=== PATIENT | male | born 1940 | race Caucasian/White ===

== ENCOUNTER 2016-08-12 13:59 | Emergency (ER) | payer OTHER ==
[~2016-08-12] VITALS: Ht 177.8 cm; Wt 63.0 kg
[~2016-08-12 13:59] MED LIST: ASPIRIN81 M1 PO; Cardizem PO; DuoNeb IH; GLYBURIDE-METF1 EAC1 PO; INSULIN SC; LANTUS 3 M100 UNITS1 SC; LIPITOR PO; LIPITOR20 MG PO; LISINOPRIL5 MG PO; Lanoxin,Digitek PO; Lasix PO; METOPROLOL TART25 MG PO; PANTOPRAZOLE SO40 MG PO; Protonix PO; TOPROL PO; Toprol XL PO; Zestril,Prinivil PO
[2016-08-12 14:50] LABS: HEMATOCRIT 36.3 % (38.0-50.0); MCH 32.6 PG (29.0-34.0); MCHC 34.4 G/DL (30.0-36.0); MCV 94.5 FL (86-99); MEAN PLAT.VOLUME 9.2 uM^3 (9.0-12.4); PLATELET COUNT 157 K/uL (156-360); RBC DIS.WIDTH-CV 12.9 % (11.8-14.6); RBC DIS.WIDTH-SD 42.9 % (39-53); RED BLOOD COUNT 3.84 M/uL (4.00-5.50); WHITE BLOOD COUNT 6.2 K/uL (4.1-10.2)
[2016-08-12 14:51] LABS: POINT-OF-CARE METER ID UU13113702
[2016-08-12 15:04] LABS: CHLORIDE 111 mEq/L (99-109)
[2016-08-12 15:05] LABS: POTASSIUM 4.5 mEq/L (3.7-5.4); SODIUM 140 mEq/L (136-147)
[2016-08-12 15:06] LABS: GLUCOSE 79 mg/dL (70-99)
[2016-08-12 15:08] LABS: ANION GAP 7 MEQ/L (2-14)
[2016-08-12 15:10] LABS: GFR ESTIMATE (CALCULATED) > 59 mL/min/
[2016-08-12 15:11] LABS: UREA NITROGEN (BUN) 20 mg/dL (9-23)
[2016-08-12 17:45] LABS: POINT-OF-CARE METER ID UU13113702
[2016-08-12] MEDS ORDERED: DIGITEK125 MC2 PO (17:47)
[2016-08-12] MEDS ORDERED: LO-DOSE ASPIRIN81 M2 PO (17:47)
[2016-08-12] MEDS ORDERED: CARDIZEM30 MG PO (17:48)
[2016-08-12] MEDS ORDERED: LASIX20 MG PO (17:49)
[2016-08-12] MEDS ORDERED: LANTUS 3 M100 UNITS1 SC (17:50)
[2016-08-12] MEDS ORDERED: TOPROL XL100 MG PO (17:51)
[2016-08-12] MEDS ORDERED: LISINOPRIL5 MG PO (17:51)
[2016-08-12] MEDS ORDERED: PROTONIX40 MG PO (17:55)
[2016-08-12 17:57] VITALS: BP 119/63
[2016-08-12 18:18] LABS: POINT-OF-CARE METER ID UU13113702
== END 2016-08-12 17:58 | disposition left against medical advice (07) ==
LOC: EME → EDBD 13:59 → EME 13:59
PROVIDERS: Emergency Medicine
DX: E11.649 Type 2 diabetes mellitus with hypoglycemia without coma (principal); I11.0 Hypertensive heart disease with heart failure; I50.9 Heart failure, unspecified; E78.5 Hyperlipidemia, unspecified; K21.9 Gastro-esophageal reflux disease without esophagitis; Z95.1 Presence of aortocoronary bypass graft; F17.200 Nicotine dependence, unspecified, uncomplicated; Z79.4 Long term (current) use of insulin; Z79.84 Long term (current) use of oral hypoglycemic drugs; Z79.82 Long term (current) use of aspirin
CPT/HCPCS: 80048; 82948; 85027; 87506; 99281; 99285

== ENCOUNTER 2016-08-13 08:36 | Observation (INO) | payer OTHER ==
[~2016-08-13] VITALS: Ht 177.8 cm; Wt 63.5 kg
[~2016-08-13 08:36] MED LIST changes: +CARDIZEM30 MG PO; +DIGITEK125 MC2 PO; +LASIX20 MG PO; +LO-DOSE ASPIRIN81 M2 PO; +PROTONIX40 MG PO; +TOPROL XL100 MG PO
[2016-08-13 09:18] LABS: EOSINOPHIL (%) 2.8 % (0-5); EOSINOPHIL COUNT 0.2 K/uL (0-0.3); IMMATURE GRANULOCYTE (%) 0.4 % (0.0-0.7); IMMATURE GRANULOCYTE COUNT 0.2 K/uL; LYMPHOCYTE COUNT 1.2 K/uL (1.0-2.8); MCH 32.3 PG (29.0-34.0); MCHC 34.1 G/DL (30.0-36.0); MCV 94.9 FL (86-99); MEAN PLAT.VOLUME 9.8 uM^3 (9.0-12.4); MONOCYTE COUNT 0.3 K/uL (0-0.8); NEUTROPHIL (%) 69.8 % (45-76); NEUTROPHIL COUNT 3.9 K/uL (1.8-6.4); PLATELET COUNT 171 K/uL (156-360); RBC DIS.WIDTH-CV 13.1 % (11.8-14.6); RBC DIS.WIDTH-SD 43.3 % (39-53); WHITE BLOOD COUNT 5.6 K/uL (4.1-10.2)
[2016-08-13 09:25] LABS: POINT-OF-CARE METER ID UU13113702
[2016-08-13 09:40] LABS: TROP-I INTERPRETATION NEGATIVE; TROPONIN-I 0.01 ng/mL (0.0-0.30)
[2016-08-13 09:50] LABS: ANION GAP 4 MEQ/L (2-14); CHLORIDE 109 MEQ/L (99-109); GFR ESTIMATE (CALCULATED) 57 mL/min/; POTASSIUM 4.3 MEQ/L (3.7-5.4); SAMPLE HEMOLYSIS CHECK 0; SAMPLE ICTERIC CHECK 0; SAMPLE LIPEMIA CHECK 0; SODIUM 140 MEQ/L (136-147); UREA NITROGEN (BUN) 16 mg/dL (9-23)
[2016-08-13 10:03] LABS: GLUCOSE 47 mg/dL (70-99)
[2016-08-13 11:33] LABS: POINT-OF-CARE METER ID UU13113702
[2016-08-13 12:23] LABS: POINT-OF-CARE METER ID UU13113702
[2016-08-13 12:30] LABS: POINT-OF-CARE METER ID UU13113702
[2016-08-13 13:02] LABS: LIPASE 6 U/L (1.0-51.0)
[2016-08-13 13:44] LABS: ADD MIUA? NO; BILIRUBIN NEGATIVE; BLOOD NEGATIVE; COLOR YELLOW ((YELLOW)); GLUCOSE (STRIP) NEGATIVE; KETONES NEGATIVE; LEUKOCYTES NEGATIVE; NITRITE NEGATIVE; PROTEIN (STRIP) NEGATIVE; SPECIFIC GRAVITY 1.008 (1.000-1.030); UROBILINOGEN 0.2 MG/DL (0.2-1.0)
[2016-08-13 14:03] LABS: POINT-OF-CARE METER ID UU14162513
[2016-08-13 15:07] VITALS: BP 138/63
[2016-08-13 16:29] VITALS: BP 99/57
[2016-08-13 18:11] LABS: POINT-OF-CARE METER ID UU14162513
[2016-08-13 21:31] LABS: POINT-OF-CARE METER ID UU14162513
[2016-08-13 23:37] VITALS: BP 93/55
[2016-08-14 07:41] VITALS: BP 135/83
[2016-08-14 08:18] LABS: ANION GAP 6 MEQ/L (2-14); CHLORIDE 108 MEQ/L (99-109); GFR ESTIMATE (CALCULATED) > 59 mL/min/; POTASSIUM 5.1 MEQ/L (3.7-5.4); SAMPLE HEMOLYSIS CHECK 0; SAMPLE ICTERIC CHECK 0; SAMPLE LIPEMIA CHECK 0; SODIUM 136 MEQ/L (136-147); UREA NITROGEN (BUN) 14 mg/dL (9-23)
[2016-08-14 08:20] LABS: GLUCOSE 191 mg/dL (70-99)
[2016-08-14 08:29] LABS: POINT-OF-CARE METER ID UU13113700
[2016-08-14 11:12] VITALS: BP 119/69
[2016-08-14 16:10] VITALS: BP 132/76
[2016-08-14 17:28] LABS: C DIFF TOXIN NEGATIVE (NEGATIVE)
[2016-08-14 17:33] LABS: PROBE CHECK PASS; SPECIMEN PROCESSING CONTROL PASS
[2016-08-14 21:00] VITALS: BP 102/54
[2016-08-14 21:48] LABS: POINT-OF-CARE METER ID UU13113700
[2016-08-14 23:00] VITALS: BP 94/54
[2016-08-15 05:28] VITALS: BP 106/56
[2016-08-15 08:45] LABS: POINT-OF-CARE METER ID UU13113831
[2016-08-15 09:14] LABS: ALKALINE PHOSPHATASE 67 IU/L (3-129); ANION GAP 2 MEQ/L (2-14); CHLORIDE 109 MEQ/L (99-109); GFR ESTIMATE (CALCULATED) > 59 mL/min/; GLUCOSE 257 mg/dL (70-99); SAMPLE HEMOLYSIS CHECK 0; SAMPLE ICTERIC CHECK 0; SAMPLE LIPEMIA CHECK 0; SODIUM 136 MEQ/L (136-147); TOTAL BILIRUBIN 0.7 MG/DL (0.0-1.0); UREA NITROGEN (BUN) 13 mg/dL (9-23)
[2016-08-15 10:15] LABS: LIPASE < 3.0 U/L (1.0-51.0)
[2016-08-15 10:38] VITALS: BP 107/67
[2016-08-15] MEDS ORDERED: ASPIR-LOW81 MG PO (12:02)
[2016-08-15] MEDS ORDERED: METOPROLOL SUC100 MG PO (12:04)
[2016-08-15] MEDS ORDERED: CARDIZEM30 MG PO (12:04)
[2016-08-15] MEDS ORDERED: PRAVASTATIN SOD80 MG PO (12:04)
[2016-08-15] MEDS ORDERED: LISINOPRIL5 MG PO (12:04)
[2016-08-15] MEDS ORDERED: FUROSEMIDE20 MG PO (12:04)
[2016-08-15] MEDS ORDERED: DIGOXIN125 MCG PO (12:04)
[2016-08-15] MEDS ORDERED: NOVOLOG PE100 UNITS/ SC (12:04)
[2016-08-15] MEDS ORDERED: PANTOPRAZOLE SO40 MG PO (12:04)
== END 2016-08-15 12:46 | disposition home or self-care (01) ==
LOC: EME → EDBD 08:36 → EDOF 12:12 → 5WEST 13:22
PROVIDERS: Emergency Medicine; Family Medicine
DX: E11.649 Type 2 diabetes mellitus with hypoglycemia without coma (principal); Z79.4 Long term (current) use of insulin; I10 Essential (primary) hypertension; R11.2 Nausea with vomiting, unspecified; R19.7 Diarrhea, unspecified; F17.200 Nicotine dependence, unspecified, uncomplicated; I25.2 Old myocardial infarction; I25.10 Atherosclerotic heart disease of native coronary artery without angina pectoris; E78.5 Hyperlipidemia, unspecified; J44.9 Chronic obstructive pulmonary disease, unspecified
CPT/HCPCS: 71020; 80048; 80053; 81003; 82948; 83605; 83690; 84484; 85025; 87040; 87086; 87493; 87506; 93005; 99281; 99285; G0378; J1650; J1815; J2405; J2765; J7030

== ENCOUNTER 2016-08-23 11:36 | Inpatient (IN) | payer OTHER ==
[~2016-08-23] VITALS: Ht 177.8 cm; Wt 60.9 kg
[~2016-08-23 11:36] MED LIST changes: +ASPIR-LOW81 MG PO; +DIGOXIN125 MCG PO; +FUROSEMIDE20 MG PO; +METOPROLOL SUC100 MG PO; +NOVOLOG PE100 UNITS/ SC; +PRAVASTATIN SOD80 MG PO
[2016-08-23 12:32] LABS: EOSINOPHIL (%) 0.1 % (0-5); HEMATOCRIT 35.4 % (38.0-50.0); IMMATURE GRANULOCYTE (%) 0.9 % (0.0-0.7); IMMATURE GRANULOCYTE COUNT 0.9 K/uL; LYMPHOCYTE COUNT 1.2 K/uL (1.0-2.8); MCH 31.9 PG (29.0-34.0); MCHC 34.7 G/DL (30.0-36.0); MCV 91.7 FL (86-99); MONOCYTE (%) 6.7 % (3-12); MONOCYTE COUNT 0.7 K/uL (0-0.8); NEUTROPHIL (%) 79.9 % (45-76); NEUTROPHIL COUNT 8.1 K/uL (1.8-6.4); PLATELET COUNT 132 K/uL (156-360); RBC DIS.WIDTH-SD 42.6 % (39-53); RED BLOOD COUNT 3.86 M/uL (4.00-5.50); WHITE BLOOD COUNT 10.1 K/uL (4.1-10.2)
[2016-08-23 12:34] LABS: CHLORIDE 105 mEq/L (99-109); POTASSIUM 4.5 mEq/L (3.7-5.4); SODIUM 136 mEq/L (136-147)
[2016-08-23 12:36] LABS: GLUCOSE 331 mg/dL (70-99)
[2016-08-23 12:37] LABS: ANION GAP 13 MEQ/L (2-14)
[2016-08-23 12:38] LABS: TOTAL BILIRUBIN 0.8 mg/dL (0.0-1.0)
[2016-08-23 12:39] LABS: ALKALINE PHOSPHATASE 76 IU/L (3-129)
[2016-08-23 12:40] LABS: GFR ESTIMATE (CALCULATED) 52 mL/min/
[2016-08-23 12:41] LABS: UREA NITROGEN (BUN) 36 mg/dL (9-23)
[2016-08-23 12:46] LABS: TROP-I INTERPRETATION NEGATIVE; TROPONIN-I 0.04 ng/mL (0.0-0.30)
[2016-08-23] MEDS ORDERED: ASPIR 8181 M1 PO (13:36)
[2016-08-23] MEDS ORDERED: CARDIZEM30 MG PO (13:36)
[2016-08-23] MEDS ORDERED: PEPTO BISMOL240 ML PO (13:36)
[2016-08-23] MEDS ORDERED: FUROSEMIDE20 MG PO (13:37)
[2016-08-23] MEDS ORDERED: LASIX20 MG PO (13:37)
[2016-08-23 18:54] LABS: POINT-OF-CARE METER ID UU13113702
[2016-08-23 19:44] LABS: POINT-OF-CARE METER ID UU13113702
[2016-08-23 20:56] VITALS: BP 126/58
[2016-08-23 23:24] LABS: POINT-OF-CARE METER ID UU14149396
[2016-08-23 23:39] VITALS: BP 126/61
[2016-08-24 05:20] VITALS: BP 153/67
[2016-08-24 06:16] LABS: POINT-OF-CARE METER ID UU13113807
[2016-08-24 07:09] LABS: EOSINOPHIL (%) 0 % (0-5); HEMATOCRIT 30.6 % (38.0-50.0); IMMATURE GRANULOCYTE (%) 0.5 % (0.0-0.7); MCH 32.2 PG (29.0-34.0); MCV 92.2 FL (86-99); MEAN PLAT.VOLUME 10.9 uM^3 (9.0-12.4); MONOCYTE (%) 2.6 % (3-12); MONOCYTE COUNT 0.2 K/uL (0-0.8); NEUTROPHIL (%) 79.4 % (45-76); NEUTROPHIL COUNT 4.5 K/uL (1.8-6.4); PLATELET COUNT 131 K/uL (156-360); RBC DIS.WIDTH-CV 13.3 % (11.8-14.6); RBC DIS.WIDTH-SD 44.9 % (39-53); RED BLOOD COUNT 3.32 M/uL (4.00-5.50)
[2016-08-24 07:11] LABS: WHITE BLOOD COUNT 5.7 K/uL (4.1-10.2)
[2016-08-24 07:19] LABS: ANION GAP 10 MEQ/L (2-14); CHLORIDE 107 MEQ/L (99-109); GFR ESTIMATE (CALCULATED) > 59 mL/min/; GLUCOSE 244 mg/dL (70-99); SAMPLE HEMOLYSIS CHECK 0; SAMPLE ICTERIC CHECK 0; SAMPLE LIPEMIA CHECK 0; SODIUM 138 MEQ/L (136-147); UREA NITROGEN (BUN) 28 mg/dL (9-23)
[2016-08-24 08:04] VITALS: BP 117/76
[2016-08-24 12:38] VITALS: BP 149/66
[2016-08-24 13:04] LABS: POINT-OF-CARE METER ID UU14149396; POINT-OF-CARE USER ID 606021404
[2016-08-24 14:58] LABS: INFLUENZA A VIRAL ANTIGEN POSITIVE; INFLUENZA B VIRAL ANTIGEN NEGATIVE
[2016-08-24 15:00] VITALS: BP 135/63
[2016-08-24 18:00] LABS: POINT-OF-CARE METER ID UU14149396
[2016-08-24 20:30] VITALS: BP 117/58
[2016-08-24 22:47] LABS: POINT-OF-CARE METER ID UU13113807; POINT-OF-CARE USER ID STWHLR41
[2016-08-24 23:56] VITALS: BP 139/60
[2016-08-25 06:51] LABS: HEMATOCRIT 30.6 % (38.0-50.0); MCH 30.8 PG (29.0-34.0); MCHC 33.7 G/DL (30.0-36.0); MCV 91.6 FL (86-99); RBC DIS.WIDTH-CV 13.4 % (11.8-14.6); RBC DIS.WIDTH-SD 44.5 % (39-53); RED BLOOD COUNT 3.34 M/uL (4.00-5.50); WHITE BLOOD COUNT 5.6 K/uL (4.1-10.2)
[2016-08-25 07:02] LABS: EOSINOPHIL (%) 0.5 % (0-5); IMMATURE GRANULOCYTE (%) 0.5 % (0.0-0.7); LYMPHOCYTE COUNT 0.8 K/uL (1.0-2.8); MONOCYTE (%) 6.8 % (3-12); MONOCYTE COUNT 0.4 K/uL (0-0.8); NEUTROPHIL (%) 77.2 % (45-76); NEUTROPHIL COUNT 4.3 K/uL (1.8-6.4)
[2016-08-25 07:09] LABS: PLATELET COUNT 173 K/uL (156-360)
[2016-08-25 07:28] LABS: ANION GAP 8 MEQ/L (2-14); CHLORIDE 108 MEQ/L (99-109); GFR ESTIMATE (CALCULATED) > 59 mL/min/; GLUCOSE 258 mg/dL (70-99); POTASSIUM 3.8 MEQ/L (3.7-5.4); SAMPLE HEMOLYSIS CHECK 0; SAMPLE ICTERIC CHECK 0; SAMPLE LIPEMIA CHECK 0; SODIUM 137 MEQ/L (136-147); UREA NITROGEN (BUN) 21 mg/dL (9-23)
[2016-08-25 08:00] VITALS: BP 163/71
[2016-08-25 08:42] LABS: POINT-OF-CARE METER ID UU13113807
[2016-08-25 11:42] LABS: POINT-OF-CARE METER ID UU13113807
[2016-08-25 12:00] VITALS: BP 171/69
[2016-08-25 16:02] VITALS: BP 144/64
[2016-08-25 17:17] LABS: POINT-OF-CARE METER ID UU14149398
[2016-08-25 20:16] VITALS: BP 124/68
[2016-08-25 22:07] LABS: POINT-OF-CARE METER ID UU14149398
[2016-08-26] VITALS: BP 129/84
[2016-08-26 06:21] LABS: ANION GAP 8 MEQ/L (2-14); CHLORIDE 108 MEQ/L (99-109); GFR ESTIMATE (CALCULATED) > 59 mL/min/; GLUCOSE 269 mg/dL (70-99); POTASSIUM 3.7 MEQ/L (3.7-5.4); SAMPLE HEMOLYSIS CHECK 0; SAMPLE ICTERIC CHECK 0; SAMPLE LIPEMIA CHECK 0; SODIUM 137 MEQ/L (136-147); UREA NITROGEN (BUN) 14 mg/dL (9-23)
[2016-08-26 06:36] LABS: EOSINOPHIL (%) 0.9 % (0-5); EOSINOPHIL COUNT 0.1 K/uL (0-0.3); IMMATURE GRANULOCYTE (%) 0.5 % (0.0-0.7); LYMPHOCYTE COUNT 0.9 K/uL (1.0-2.8); MCH 31.4 PG (29.0-34.0); MCHC 34.3 G/DL (30.0-36.0); MCV 91.5 FL (86-99); MEAN PLAT.VOLUME 10.9 uM^3 (9.0-12.4); MONOCYTE (%) 6.2 % (3-12); MONOCYTE COUNT 0.4 K/uL (0-0.8); NEUTROPHIL (%) 77.5 % (45-76); PLATELET COUNT 221 K/uL (156-360); RBC DIS.WIDTH-CV 13.2 % (11.8-14.6); RED BLOOD COUNT 3.28 M/uL (4.00-5.50); WHITE BLOOD COUNT 6.4 K/uL (4.1-10.2)
[2016-08-26 08:00] VITALS: BP 138/69
[2016-08-26 11:50] LABS: POINT-OF-CARE METER ID UU14149396
[2016-08-26 16:35] VITALS: BP 100/50
[2016-08-26 16:39] LABS: POINT-OF-CARE METER ID UU13113807
[2016-08-26 21:05] VITALS: BP 140/67
[2016-08-26 21:29] LABS: POINT-OF-CARE METER ID UU13113807; POINT-OF-CARE USER ID 608261316
[2016-08-27 00:44] VITALS: BP 112/10; BP 112/70
[2016-08-27 07:22] LABS: EOSINOPHIL (%) 1.6 % (0-5); EOSINOPHIL COUNT 0.1 K/uL (0-0.3); HEMATOCRIT 30.8 % (38.0-50.0); IMMATURE GRANULOCYTE (%) 1.4 % (0.0-0.7); IMMATURE GRANULOCYTE COUNT 0.1 K/uL; LYMPHOCYTE COUNT 1.2 K/uL (1.0-2.8); MCH 32.4 PG (29.0-34.0); MCHC 35.7 G/DL (30.0-36.0); MCV 90.6 FL (86-99); MEAN PLAT.VOLUME 10.4 uM^3 (9.0-12.4); MONOCYTE (%) 7.5 % (3-12); MONOCYTE COUNT 0.4 K/uL (0-0.8); NEUTROPHIL (%) 68.1 % (45-76); NEUTROPHIL COUNT 3.8 K/uL (1.8-6.4); PLATELET COUNT 266 K/uL (156-360); RBC DIS.WIDTH-CV 13.2 % (11.8-14.6); RBC DIS.WIDTH-SD 43.8 % (39-53); WHITE BLOOD COUNT 5.6 K/uL (4.1-10.2)
[2016-08-27 07:46] LABS: ANION GAP 10 MEQ/L (2-14); CHLORIDE 109 MEQ/L (99-109); GFR ESTIMATE (CALCULATED) > 59 mL/min/; GLUCOSE 247 mg/dL (70-99); POTASSIUM 3.6 MEQ/L (3.7-5.4); SAMPLE HEMOLYSIS CHECK 0; SAMPLE ICTERIC CHECK 0; SAMPLE LIPEMIA CHECK 0; SODIUM 138 MEQ/L (136-147); UREA NITROGEN (BUN) 7 mg/dL (9-23)
[2016-08-27 08:00] VITALS: BP 170/76
[2016-08-27 08:18] LABS: POINT-OF-CARE METER ID UU14149396
[2016-08-27 12:02] LABS: POINT-OF-CARE METER ID UU14149396
[2016-08-27] MEDS ORDERED: CEFTIN500 MG PO (13:18)
[2016-08-27] MEDS ORDERED: SILVADENE20 GM TP (13:18)
[2016-08-27] MEDS ORDERED: MIRTAZAPINE15 MG PO (13:18)
[2016-08-27] MEDS ORDERED: OSELTAMIVIR PHO30 MG PO (13:18)
[2016-08-27] MEDS ORDERED: METOPROLOL SUCC50 MG PO (13:18)
== END 2016-08-27 14:30 | disposition home health service (06) | DRG 194 ==
LOC: EME 11:36 → EDOF 13:14 → 4SOUTH 13:14
PROVIDERS: Emergency Medicine; Family Medicine
DX: J18.9 Pneumonia, unspecified organism (principal); J44.1 Chronic obstructive pulmonary disease with (acute) exacerbation; Z68.1 Body mass index [BMI] 19.9 or less, adult; J09.X2 Influenza due to identified novel influenza A virus with other respiratory manifestations; E86.0 Dehydration; E11.65 Type 2 diabetes mellitus with hyperglycemia; N28.9 Disorder of kidney and ureter, unspecified; I95.9 Hypotension, unspecified; M62.50 Muscle wasting and atrophy, not elsewhere classified, unspecified site; R19.7 Diarrhea, unspecified; R32 Unspecified urinary incontinence; Z91.19 Patient's noncompliance with other medical treatment and regimen; Z79.4 Long term (current) use of insulin
CPT/HCPCS: 71010; 80048; 80053; 81003; 82948; 83630; 84484; 85025; 87040; 87493; 87502; 93005; 94640 76; 94760; 99202; 99281; 99285; J0456; J0696; J1650; J1815; J7030; J7050

== ENCOUNTER 2016-09-07 11:18 | Inpatient (IN) | payer OTHER ==
[~2016-09-07] VITALS: Ht 177.8 cm; Wt 63.9 kg
[~2016-09-07 11:18] MED LIST changes: +ASPIR 8181 M1 PO; +CEFTIN500 MG PO; +METOPROLOL SUCC50 MG PO; +MIRTAZAPINE15 MG PO; +OSELTAMIVIR PHO30 MG PO; +PEPTO BISMOL240 ML PO; +SILVADENE20 GM TP
[2016-09-07 12:45] LABS: EOSINOPHIL (%) 0.6 % (0-5); HEMATOCRIT 32.1 % (38.0-50.0); IMMATURE GRANULOCYTE (%) 0.8 % (0.0-0.7); IMMATURE GRANULOCYTE COUNT 0.1 K/uL; LYMPHOCYTE COUNT 0.8 K/uL (1.0-2.8); MCH 31.5 PG (29.0-34.0); MCHC 34.3 G/DL (30.0-36.0); MEAN PLAT.VOLUME 10.4 uM^3 (9.0-12.4); MONOCYTE (%) 6.8 % (3-12); MONOCYTE COUNT 0.4 K/uL (0-0.8); NEUTROPHIL (%) 78.7 % (45-76); NEUTROPHIL COUNT 4.9 K/uL (1.8-6.4); PLATELET COUNT 239 K/uL (156-360); RBC DIS.WIDTH-SD 45.4 % (39-53); RED BLOOD COUNT 3.49 M/uL (4.00-5.50); WHITE BLOOD COUNT 6.2 K/uL (4.1-10.2)
[2016-09-07 12:53] LABS: INTER. NORMALIZED RATIO 1.1; PROTHROMBIN TIME 11.4 (9.2-11.2)
[2016-09-07 13:14] LABS: ANION GAP 9 MEQ/L (2-14); CHLORIDE 105 MEQ/L (99-109); GFR ESTIMATE (CALCULATED) > 59 mL/min/; GLUCOSE 229 mg/dL (70-99); POTASSIUM 3.5 MEQ/L (3.7-5.4); SAMPLE HEMOLYSIS CHECK 0; SAMPLE ICTERIC CHECK 0; SAMPLE LIPEMIA CHECK 0; SODIUM 141 MEQ/L (136-147); UREA NITROGEN (BUN) 16 mg/dL (9-23)
[2016-09-07] MEDS ORDERED: KEFLEX500 MG PO (13:34)
[2016-09-07 16:21] LABS: POINT-OF-CARE METER ID UU13113702
[2016-09-07 23:48] VITALS: BP 126/84
[2016-09-08 05:48] LABS: EOSINOPHIL (%) 0.3 % (0-5); HEMATOCRIT 33.6 % (38.0-50.0); IMMATURE GRANULOCYTE (%) 1.1 % (0.0-0.7); IMMATURE GRANULOCYTE COUNT 0.1 K/uL; LYMPHOCYTE COUNT 1.7 K/uL (1.0-2.8); MCH 32.2 PG (29.0-34.0); MCHC 34.8 G/DL (30.0-36.0); MCV 92.6 FL (86-99); MONOCYTE (%) 7.4 % (3-12); MONOCYTE COUNT 0.6 K/uL (0-0.8); NEUTROPHIL (%) 68.3 % (45-76); NEUTROPHIL COUNT 5.1 K/uL (1.8-6.4); RBC DIS.WIDTH-CV 14.2 % (11.8-14.6); RBC DIS.WIDTH-SD 47.3 % (39-53); RED BLOOD COUNT 3.63 M/uL (4.00-5.50); WHITE BLOOD COUNT 7.5 K/uL (4.1-10.2)
[2016-09-08 06:29] LABS: ANION GAP 11 MEQ/L (2-14); CHLORIDE 107 MEQ/L (99-109); GFR ESTIMATE (CALCULATED) > 59 mL/min/; GLUCOSE 273 mg/dL (70-99); SAMPLE HEMOLYSIS CHECK 0; SAMPLE ICTERIC CHECK 0; SAMPLE LIPEMIA CHECK 0; SODIUM 139 MEQ/L (136-147); UREA NITROGEN (BUN) 13 mg/dL (9-23)
[2016-09-08 06:32] LABS: POTASSIUM 4.3 MEQ/L (3.7-5.4)
[2016-09-08 06:55] VITALS: BP 172/82
[2016-09-08 07:05] LABS: PLATELET COUNT UNABLE TO REPORT K/uL (156-360); USER ID TLW
[2016-09-08 16:54] VITALS: BP 136/69
[2016-09-08 21:08] LABS: POINT-OF-CARE METER ID UU13113725
[2016-09-08 23:20] VITALS: BP 136/68
[2016-09-09 03:12] LABS: EOSINOPHIL (%) 0.6 % (0-5); HEMATOCRIT 34.4 % (38.0-50.0); IMMATURE GRANULOCYTE (%) 0.4 % (0.0-0.7); IMMATURE GRANULOCYTE COUNT 0.3 K/uL; LYMPHOCYTE COUNT 1.1 K/uL (1.0-2.8); MCH 31.9 PG (29.0-34.0); MCHC 34.3 G/DL (30.0-36.0); MONOCYTE (%) 5.5 % (3-12); MONOCYTE COUNT 0.4 K/uL (0-0.8); NEUTROPHIL (%) 76.8 % (45-76); NEUTROPHIL COUNT 5.1 K/uL (1.8-6.4); RBC DIS.WIDTH-CV 14.5 % (11.8-14.6); RBC DIS.WIDTH-SD 45.8 % (39-53); WHITE BLOOD COUNT 6.7 K/uL (4.1-10.2)
[2016-09-09 03:14] LABS: PLATELET COUNT 211 K/uL (156-360)
[2016-09-09 03:30] LABS: CHLORIDE 109 mEq/L (99-109); POTASSIUM 3.9 mEq/L (3.7-5.4); SODIUM 141 mEq/L (136-147)
[2016-09-09 03:32] LABS: GLUCOSE 212 mg/dL (70-99)
[2016-09-09 03:33] LABS: ANION GAP 9 MEQ/L (2-14)
[2016-09-09 03:36] LABS: GFR ESTIMATE (CALCULATED) > 59 mL/min/; UREA NITROGEN (BUN) 11 mg/dL (9-23)
[2016-09-09 07:25] VITALS: BP 173/89
[2016-09-09 07:38] VITALS: BP 150/80
[2016-09-09 16:11] VITALS: BP 151/67
[2016-09-09 22:09] LABS: POINT-OF-CARE METER ID UU13113725
[2016-09-10 00:30] VITALS: BP 146/86
[2016-09-10 07:26] VITALS: BP 164/104
[2016-09-10 09:19] VITALS: BP 150/84
[2016-09-10] MEDS ORDERED: CLEOCIN300 MG PO (15:29)
[2016-09-10 15:46] VITALS: BP 145/75
== END 2016-09-10 16:15 | disposition home health service (06) | DRG 300 ==
LOC: EME 11:18 → 5EAST 13:53 → EDOF 13:53 → 5EAST 13:53 → EDOF 13:53 → 5EAST 22:55
PROVIDERS: Emergency Medicine; Family Medicine
DX: E11.52 Type 2 diabetes mellitus with diabetic peripheral angiopathy with gangrene (principal); L03.115 Cellulitis of right lower limb; L89.151 Pressure ulcer of sacral region, stage 1; J90 Pleural effusion, not elsewhere classified; J44.9 Chronic obstructive pulmonary disease, unspecified; E46 Unspecified protein-calorie malnutrition; E11.621 Type 2 diabetes mellitus with foot ulcer; S81.801A Unspecified open wound, right lower leg, initial encounter; L89.899 Pressure ulcer of other site, unspecified stage; E86.0 Dehydration; I10 Essential (primary) hypertension; I25.10 Atherosclerotic heart disease of native coronary artery without angina pectoris; E78.5 Hyperlipidemia, unspecified; I25.5 Ischemic cardiomyopathy; I50.9 Heart failure, unspecified; F32.9 Major depressive disorder, single episode, unspecified; F17.210 Nicotine dependence, cigarettes, uncomplicated; I25.2 Old myocardial infarction; Z79.4 Long term (current) use of insulin
CPT/HCPCS: 80048; 80202; 82948; 85025; 85610; 94640; 94640 76; 94760; 94799; 99202; 99281; 99285; J0692; J1650; J1815; J3370; J7030; J7050